=== PATIENT | male | born 1990 | race Caucasian/White ===

== ENCOUNTER 2019-02-17 09:30 | Emergency (ER) | payer OTHER ==
[2019-02-17 10:58] LABS: Urine Appearance Clear; Urine Bilirubin Negative (Negative); Urine Blood Negative (Negative); Urine Color Yellow; Urine Glucose Negative (Negative); Urine Ketones Negative (Negative); Urine Nitrite Negative (Negative); Urine Protein Negative (Negative); Urine Specific Gravity 1.011 (1.010-1.030); Urine Urobilinogen Negative (Negative)
[2019-02-17] MEDS ORDERED: Azithromycin TAB* 250 MG PO ONE (11:04)
[2019-02-17] MEDS ORDERED: cefTRIAXone VIAL(*) 250 MG VIAL IM ONE (11:04)
[2019-02-17] MEDS ORDERED: Lidocaine 1% MPF ** 5 ML VIAL IM ONE (11:04)
--- NOTE | 2019-02-17 11:04 | ED ---
Complex/Multi-Sys Presentation - HPI Summary HPI Summary: This patient is a 28 year old M presenting to [facility] with a chief complaint of lower ABD strain since 2 weeks ago. Pt states this strain is discomforting and lasted for 1 week. He notes that the ABD strain discomfort woke him up one night. Pt also complains of dysuria for 2 days, but is currently resolved. He states he had a UTI/proctitis 1.5 years ago (he is unsure of why he had it but states it felt different), no hx of STDs, and last had unprotected sex 1.5 months ago. The patient rates the pain 2/10 in severity, achy in his suprapubic area. Symptoms aggravated by urinating. Symptoms alleviated by nothing. Patient reports worsening left jaw pain from a fall 1 week ago. He is following w a dentist for it and had Xrays. Will see an oral surgeon this week. Patient denies any penile rash or lesions, no testicular pain, no discharge. - History Of Current Complaint Chief Complaint: EDUrogenitalProblems Time Seen by Provider: 02/17/19 10:18 Hx Obtained From: Patient Onset/Duration: Sudden Onset, Lasting Weeks - lower ABD strain discomfort started 2 weeks ago Timing: Constant Location: Pain At: - lower ABD strain discomfort Aggravating Factor(s): nothing Alleviating Factor(s): nothing Associated Signs And Symptoms: Positive: Abdominal Pain - lower ABD strain discomfort, Dysuria - lasted 2 days, Recent Trauma - positive - left jaw pain from a fall 1 week ago, Other - negative - rash or lesions - Allergies/Home Medications Allergies/Adverse Reactions: Allergies Allergy/AdvReac Type Severity Reaction Status Date / Time Sulfa (Sulfonamide Allergy Unknown Verified 02/17/19 11:28 Antibiotics) Reaction Details PMH/Surg Hx/FS Hx/Imm Hx Previously Healthy: No History: Reports: Other Problems/Disorders - UTI/proctitis 1.5 years ago Sensory History: Denies: Hx Cataracts, Hx Vision Problem Opthamlomology History: Denies: Hx Cataracts, Hx Legally Blind EENT History: Denies: Hx Deafness, Hx Auditory Problems - Surgical History Surgical History: Yes Infectious Disease History: No Infectious Disease History: Denies: Traveled Outside the [place] in Last 30 Days - Family History Known Family History: Positive: Hypertension, Diabetes - Social History Alcohol Use: Daily Hx Substance Use: No Substance Use Type: Reports: None Hx Tobacco Use: Yes Smoking Status (MU): Light Every Day Tobacco Smoker Review of Systems Positive: Abdominal Pain - lower ABD strain discomfort Positive: dysuria - lasted for 2 days Musculoskeletal: Other - positive - worsening left jaw pain from a fall 1 week ago Skin: Other - negative - lesions Negative: Rash All Other Systems Reviewed And Are Negative: Yes Physical Exam - Summary Physical Exam Summary: Constitutional: Well-developed, Well-nourished, Alert. (-) Distressed Skin: Warm, Dry HENT: Normocephalic; Atraumatic, left TMJ tenderness, no trismus, no malocclusion Eyes: Conjunctiva normal Neck: Musculoskeletal ROM normal neck. (-) JVD, (-) Stridor, (-) Nuchal rigidity Cardio: Rhythm regular, rate normal, Heart sounds normal; Intact distal pulses; Radial pulses are 2+ and symmetric. (-) Murmur Pulmonary/Chest wall: Effort normal. (-) Respiratory distress, (-) Wheezes, (-) Rales Abd: Soft, (-) tenderness, (-) Distension, (-) Guarding, (-) Rebound Musculoskeletal: (-) Edema Lymph: (-) Cervical adenopathy Neuro: Alert, Oriented x3 Psych: Mood and affect Normal Triage Information Reviewed: Yes Vital Signs On Initial Exam: Initial Vitals Temp Pulse Resp BP Pulse Ox 98.5 F 94 16 157/92 100 02/17/19 09:33 02/17/19 09:33 02/17/19 09:33 02/17/19 09:33 02/17/19 09:33 Vital Signs Reviewed: Yes Diagnostics - Vital Signs Vital Signs Temp Pulse Resp BP Pulse Ox 02/17/19 09:33 98.5 F 94 16 157/92 100 - Laboratory Lab Statement: Any lab studies that have been ordered have been reviewed, and results considered in the medical decision making process. Re-Evaluation - Re-Evaluation First Eval Re-Evaluation Time: 11:04 Comment: UA is negative, will treat for STD. Complex Multi-Symp Course/Dx Course Of Treatment: 28-year-old male who presents with suprapubic discomfort as well as dysuria for one week. Patient is concerned he was exposed to an STD a month ago. Patient will be treated with ceftriaxone 250 IM as well as 1000 of azithromycin. Patient instructed to follow up regarding STD tests, and use protection for sexual encounters. Patients partners also need to be tested for STDs if his test is positive. UA negative. Regarding jaw pain, patient states he had trauma one week ago and has left TMJ tenderness. Discussed with patient to get a CT scan here and he could follow up here but patient states his appointment this week with oral surgery and had plain Panorex films done at his dentist. Patient to go home on a soft diet. No trismus on exam. - Diagnoses Provider Diagnoses: STD (male), Dysuria Discharge - Sign-Out/Discharge Documenting (check all that apply): Patient Departure - discharge Patient Received Moderate/Deep Sedation with Procedure: No - Discharge Plan Condition: Stable Disposition: HOME Patient Education Materials: Sexually Transmitted Diseases (ED), Dysuria (ED) Referrals: No Primary Care Phys,NOPCP [Primary Care Provider] - [facility] [[facility]] - 2 Days Additional Instructions: You were seen in the emergency department for burning on urination. We treated you for exposure to gonorrhea and Chlamydia. Please follow-up with test results. If you test positive for gonorrhea or chlamydia, you'll need to inform you partners that they also need to be treated. Please use condoms. Return for worsening symptoms including continued abdominal pain, fevers, burning on urination, or concerned. Please follow-up with a dentist or oral surgeon regarding your jaw pain. Follow up with a primary care provider within 2 -3 days. Please eat a soft diet - Billing Disposition and Condition Condition: STABLE Disposition: Home - Attestation Statements Document Initiated by Ronak: Yes Documenting Scribe: Nigel Mitchell Provider For Whom Ronak is Documenting (Include Credential): Dr. Mello Mora MD Scribe Attestation: I, Nigel Mitchell, scribed for Dr. Mello Mora MD on 02/17/19 at 1126. Scribe Documentation Reviewed: Yes Provider Attestation: The documentation as recorded by the Nigel champagne accurately reflects the service I personally performed and the decisions made by me, Dr. Mello Mora MD Status of Scribe Document: Viewed
[2019-02-17 11:31] VITALS: BP 145/92
[2019-02-17] MEDS ORDERED: Ondansetron ODT TAB* 4 MG SL ONE (12:02)
[2019-02-18 12:06] LABS: Neisseria gonorrhoeae (GC) RNA Negative (Negative)
== END 2019-02-17 11:30 | disposition home or self-care (01) ==
LOC: ED 09:30
DX: A64 Unspecified sexually transmitted disease (principal); R30.0 Dysuria; F17.210 Nicotine dependence, cigarettes, uncomplicated; Z88.2 Allergy status to sulfonamides
CPT/HCPCS: 81003; 87491; 87591; 96372; 99282; A9270-GY; J0696

== ENCOUNTER 2019-02-18 11:31 | Emergency (ER) | payer OTHER ==
[2019-02-18 11:43] VITALS: BP 147/84
[2019-02-18] MEDS ORDERED: Morphine 10 MG/ML VIAL (1 ml) IV ONE (11:51)
[2019-02-18] MEDS ORDERED: Ondansetron INJ* 2 MG/ML VIAL IV ONE (11:52)
--- NOTE | 2019-02-18 12:08 | UC ---
Dental HPI - HPI Summary HPI Summary: 28-year-old male with a history of jaw pain began one week ago after fall, presents with worsening jaw pain. Patient states that he injured his jaw 1 week ago went to a dentist and was told he may have a fracture. Patient presented to the ED several days ago for a different complaint, at that time I saw him he reported that he was going to follow-up with an oral surgeon this week and did not want a CT scan at that time. He was discharged on a soft diet. Patient returns today because he tripped and moved his head funny and thinks that he worsened his jaw pain. Patient is reporting 10/10 pain throbbing to the left jaw worse when he tries to open his mouth that radiates to his ear. He did not strike head. - History of Current Complaint Chief Complaint: UCTrauma Stated Complaint: L JAW INJ Time Seen by Provider: 02/18/19 11:39 Pain Intensity: 10 - Allergies/Home Medications Allergies/Adverse Reactions: Allergies Allergy/AdvReac Type Severity Reaction Status Date / Time Sulfa (Sulfonamide Allergy Unknown Verified 02/18/19 11:43 Antibiotics) Reaction Details Home Medications: Home Medications Ibuprofen 800 mg PO ONCE PRN 02/18/19 [History Confirmed 02/18/19] PMH/Surg Hx/FS Hx/Imm Hx Previously Healthy: Yes - Surgical History Surgical History: Yes Surgery Procedure, Year, and Place: oral surgery - Family History Known Family History: Positive: Hypertension, Diabetes - Social History Alcohol Use: Daily Substance Use Type: None Smoking Status (MU): Light Every Day Tobacco Smoker Amount Used/How Often: 1/2ppd Household Exposure Type: Cigarettes Review of Systems All Other Systems Reviewed And Are Negative: Yes ENT: Positive: Dental Pain, Ear Ache Neurological: Negative: Headache Physical Exam - Summary Physical Exam Summary: Constitutional: Well-developed, Well-nourished, mild distress 2/2 pain Skin: Warm, Dry HENT: Normocephalic; Atraumatic. TTP L TMJ, pain with jaw opening, mild trismus , no obvious malocclusion . No C spine TTP Eyes: Conjunctiva normal Neck: Musculoskeletal ROM normal neck. (-) JVD, (-) Stridor Cardio: Rhythm regular, rate normal, Heart sounds normal; Intact distal pulses; Radial pulses are 2+ and symmetric. (-) Murmur Pulmonary/Chest wall: Effort normal. (-) Respiratory distress, (-) Wheezes, (-) Rales Abd: Soft, (-) tenderness, (-) Distension, (-) Guarding, (-) Rebound Musculoskeletal: (-) Edema Lymph: (-) Cervical adenopathy Neuro: Alert, Oriented x3 Psych: Mood and affect Normal Vital Signs: Initial Vital Signs Temp 36.3 C 02/18/19 11:38 Pulse 86 02/18/19 11:38 Resp 18 02/18/19 11:38 BP 147/84 02/18/19 11:38 Pulse Ox 100 02/18/19 11:38 Re-Evaluation - Re-Evaluation First Eval Re-Evaluation Time: 13:10 Change: Improved - Feeling better with pain medication. Discussed with radiologist regarding concern over fracture however studies motion degraded. No obvious fracture. Patient instructed to continue soft diet, pain control follow with ENT. If he has continued pain he needs to repeat his scan as this one was not definitive. Able to open mouth completely after meds Dental Complaint Course/Dx - Course Course Of Treatment: 28 y/o male w recent jaw trauma presents with worsening left-sided jaw pain. Physical exam without obvious deformity however patient has trismus and pain jaw opening. Check a CT max face for fracture. Given pain control - Differential Dx/Diagnosis Provider Diagnosis: Jaw pain Discharge - Sign-Out/Discharge Documenting (check all that apply): Patient Departure All imaging exams completed and their final reports reviewed: Yes - Discharge Plan Condition: Stable Disposition: HOME Prescriptions: oxyCODONE/Acetamin 5/325 MG* [Percocet 5/325 TAB*] 1 tab PO Q6H PRN 3 Days #12 tab MDD 4 PRN Reason: Pain Patient Education Materials: Soft Diet (ED), Temporomandibular Disorder (ED) Referrals: [facility] [Outside] Vaughn Reynolds MD [Medical Doctor] - 2 Days (regarding jaw pain ) Additional Instructions: You were seeen at urgent care for jaw pain. Your CT scan did not show any obvious fractures however due to motion it is not a perfect scan. We recommend that if he has continued pain to repeat this in 2 weeks. Please follow up with ENT regarding your jaw pain. Please eat a soft diet. Please return for worsening pain, inability to open your mouth, trouble eating or swallowing or if you are concerned If any lab work or imaging was not completed at the time of discharge, you will be called with any relevant results. Please seek medical attention or go to the emergency department for any worsening or concerning symptoms. Please follow up with her primary care doctor in 2-3 days. It was a pleasure taking care of you today. - Billing Disposition and Condition Condition: STABLE Disposition: Home
== END 2019-02-18 13:24 | disposition home or self-care (01) ==
LOC: UCEAST 11:31
DX: R68.84 Jaw pain (principal); F17.210 Nicotine dependence, cigarettes, uncomplicated; Z88.2 Allergy status to sulfonamides
CPT/HCPCS: 70486; 96374; 96375; 99212; G0463; J2270; J2405

== ENCOUNTER 2019-03-01 16:44 | Emergency (ER) | payer OTHER ==
[2019-03-01 16:54] VITALS: BP 160/81
--- NOTE | 2019-03-01 16:56 | PN ---
Progress Note - Progress Note Date of Service: 03/01/19 Note: Pt reports bilateral lower quadrant pain, burning with urination and states he has an STD that did not go away. He was seen 13 days ago and was treated for GC /chlamydia but states it did not go away. He states the M.D. told him it was GC /Chlamydia, however upon reading the report these were both negative. It was explained to the patient in depth that likely he was treated prophylactically, however he states he denies this and states he was told he had GC/Chlamydia. He has not had intercourse since that time, but still feels a burning sensation. UA at that time was also negative. UA and GC/Chalmydia was obtained.
[2019-03-01 17:21] LABS: Urine Appearance Clear; Urine Bilirubin Negative (Negative); Urine Blood Negative (Negative); Urine Color Yellow; Urine Glucose Negative (Negative); Urine Ketones Trace (Negative); Urine Nitrite Negative (Negative); Urine Protein Negative (Negative); Urine Specific Gravity 1.021 (1.010-1.030); Urine Urobilinogen Negative (Negative)
--- NOTE | 2019-03-01 19:48 | ED ---
Abdominal Pain/Male - HPI Summary HPI Summary: Complains of acute on chronic lower abdominal pain x 2 days. History of recent UTI. States he has finished a course of antibiotics for UTI 1 week ago. States he had similar symptoms with UTI. Denies any other symptoms pain or injury, including change in BM, penile or testicular symptoms. - History of Current Complaint Chief Complaint: EDUrogenitalProblems Stated Complaint: ABD PAIN PER PT Time Seen by Provider: 03/01/19 19:32 Hx Obtained From: Patient Onset/Duration: Gradual Onset, Lasting Days Timing: Intermittent Severity Initially: Mild Severity Currently: Mild Pain Intensity: 3 Pain Scale Used: 0-10 Numeric Location: Discrete At: RLQ, Discrete At: LLQ, Suprapubic Radiates: No Character: Cramping Aggravating Factor(s): Nothing Alleviating Factor(s): Nothing Associated Signs And Symptoms: Positive: Negative - Allergies/Home Medications Allergies/Adverse Reactions: Allergies Allergy/AdvReac Type Severity Reaction Status Date / Time Sulfa (Sulfonamide Allergy Unknown Verified 02/18/19 11:43 Antibiotics) Reaction Details PMH/Surg Hx/FS Hx/Imm Hx Endocrine/Hematology History: Denies: Hx Anticoagulant Therapy Cardiovascular History: Denies: Hx Pacemaker/ICD History: Reports: Other Problems/Disorders - UTI/proctitis 1.5 years ago Sensory History: Denies: Hx Cataracts, Hx Legally Blind, Hx Vision Problem, Hx Deafness Opthamlomology History: Denies: Hx Cataracts, Hx Legally Blind, Hx Vision Problem EENT History: Denies: Hx Deafness Neurological History: Denies: Hx Dementia - Surgical History Surgery Procedure, Year, and Place: oral surgery Infectious Disease History: No Infectious Disease History: Denies: Traveled Outside the [place] in Last 30 Days - Family History Known Family History: Positive: Hypertension, Diabetes - Social History Alcohol Use: Daily Hx Substance Use: No Substance Use Type: Reports: None Hx Tobacco Use: Yes Smoking Status (MU): Light Every Day Tobacco Smoker Amount Used/How Often: 1/2ppd Review of Systems Constitutional: Negative Eyes: Negative ENT: Negative Cardiovascular: Negative Respiratory: Negative Positive: Abdominal Pain Genitourinary: Negative Musculoskeletal: Negative Skin: Negative Neurological: Negative Psychological: Normal All Other Systems Reviewed And Are Negative: Yes Physical Exam - Summary Physical Exam Summary: Abdomen mildly tender in both lower quadrants and suprapubically. Upper abdominal exam unremarkable. Triage Information Reviewed: Yes Vital Signs On Initial Exam: Initial Vitals Temp Pulse Resp BP Pulse Ox 97.1 F 90 18 160/81 99 03/01/19 16:49 03/01/19 16:49 03/01/19 16:49 03/01/19 16:49 03/01/19 16:49 Vital Signs Reviewed: Yes Appearance: Positive: No Pain Distress Skin: Positive: Warm Head/Face: Positive: Normal Head/Face Inspection Eyes: Positive: Normal Neck: Positive: Supple Respiratory/Lung Sounds: Positive: Clear to Auscultation Cardiovascular: Positive: Normal Abdomen Description: Positive: Other: Musculoskeletal: Positive: Normal Neurological: Positive: Normal Psychiatric: Positive: Normal AVPU Assessment: Alert - [place] Coma Scale Best Eye Response: 4 - Spontaneous Best Motor Response: 6 - Obeys Commands Best Verbal Response: 5 - Oriented Coma Scale Total: 15 Diagnostics - Vital Signs Vital Signs Temp Pulse Resp BP Pulse Ox 03/01/19 16:49 97.1 F 90 18 160/81 99 - Laboratory Lab Results: Lab Results 03/01/19 Range/Units 17:04 Urine Color Yellow Urine Appearance Clear Urine pH 5.0 (5-9) Ur Specific Beason 1.021 (1.010-1.030) Urine Protein Negative (Negative) Urine Ketones Trace A (Negative) Urine Blood Negative (Negative) Urine Nitrate Negative (Negative) Urine Bilirubin Negative (Negative) Urine Urobilinogen Negative (Negative) Ur Leukocyte Esterase Negative (Negative) Urine Glucose Negative (Negative) Result Diagrams: 03/01/19 20:00 03/01/19 20:00 Lab Statement: Any lab studies that have been ordered have been reviewed, and results considered in the medical decision making process. Abdominal Pain Male Course/Dx - Course Course Of Treatment: Complains of acute on chronic lower abdominal pain x 2 days. History of recent UTI. States he has finished a course of antibiotics for UTI 1 week ago. States he had similar symptoms with UTI. Denies any other symptoms pain or injury, including change in BM, penile or testicular symptoms. Vital signs within normal limits. Left AMA after lab studies he had to go to work. Signed out AMA. - Diagnoses Provider Diagnoses: Abdominal pain Discharge - Sign-Out/Discharge Documenting (check all that apply): Patient Departure Patient Received Moderate/Deep Sedation with Procedure: No - Discharge Plan Condition: Stable Disposition: AGAINST MEDICAL ADVICE Referrals: No Primary Care Phys,NOPCP [Primary Care Provider] - - Billing Disposition and Condition Condition: STABLE Disposition: Against Medical Advice
[2019-03-01 20:06] LABS: ABS Eosinophils 0.1 10^3/ul (0-0.6); ABS Lymphocytes 1.6 10^3/ul (1.0-4.8); ABS Monocytes 0.7 10^3/ul (0-0.8); ABS Neutrophils 3.4 10^3/ul (1.5-7.7); Eosinophil % 1.4 %; Hematocrit 44 % (42-52); Hemoglobin 15.3 g/dL (14.0-18.0); Lymphocyte % 27.3 %; Mean Corpuscular HGB Conc 35 g/dL (31-36); Mean Corpuscular Hemoglobin 33 pg (27-31); Mean Corpuscular Volume 95 fL (80-94); Mean Platelet Volume 7.5 fL (7.4-10.4); Nucleated Red Blood Cells % 0.1; Platelet Count 248 10^3/uL (150-450); Red Blood Count 4.67 10^6 /uL (4.18-5.48); Red Cell Distribution Width 14 % (10-15); White Blood Count 5.8 10^3/uL (3.5-10.8)
[2019-03-01 20:23] LABS: ALT 33 U/L (7-52); AST 23 U/L (13-39); Albumin 4.9 g/dL (3.2-5.2); Albumin/Globulin Ratio 1.8 (1-3); Alkaline Phosphatase 73 U/L (34-104); Anion Gap 6 mmol/L (2-11); BUN/Creatinine Ratio 15.2 (8-20); Blood Urea Nitrogen 14 mg/dL (6-24); C Reactive Protein < 1.00 mg/L (<8.01); CO2 Carbon Dioxide 30 mmol/L (22-32); Calcium 10.1 mg/dL (8.6-10.3); Chloride 100 mmol/L (101-111); EGFR African American 119.4 (>60); EGFR Non-African American 98.7 (>60); Globulin 2.8 g/dL (2-4); Glucose 95 mg/dL (70-100); Potassium 4.3 mmol/L (3.5-5.0); Sodium 136 mmol/L (135-145); Total Protein 7.7 g/dL (6.4-8.9)
[2019-03-02 22:56] LABS: Chlamydia trachomatis NAA Negative (Negative); Neisseria gonorrhoeae (GC) NAA Negative (Negative)
== END 2019-03-01 20:10 | disposition left against medical advice (07) ==
LOC: ED 16:44
DX: R10.30 Lower abdominal pain, unspecified (principal); F17.210 Nicotine dependence, cigarettes, uncomplicated; Z88.2 Allergy status to sulfonamides; Z87.440 Personal history of urinary (tract) infections
CPT/HCPCS: 36415; 80053; 81003; 83690; 85025; 86140; 87491; 87591; 99282